=== PATIENT | female | born 1985 | race American Indian/Alaskan Native ===

== ENCOUNTER 2017-03-03 08:24 | Emergency (ER) | payer MEDICAID, OTHER ==
[2017-03-03 09:19] LABS: Basophils % (Auto) 0.7 % (0.0-1.8); Eosinophils % (Auto) 4.1 % (0.0-4.3); Hematocrit 34.3 % (30.3-42.9); Hemoglobin 10.7 gm/dl (10.1-14.3); Mean Corpuscular HGB Conc 31 % (30-34); Mean Corpuscular Volume 76 fl (79-97); Platelet Count 271 K/mm3 (140-440); Red Cell Distribution Width 15.6 % (13.2-15.2); White Blood Count 6.6 K/mm3 (4.5-11.0)
[2017-03-03 09:20] LABS: Mean Corpuscular Hemoglobin 24 pg (28-32)
[2017-03-03 09:29] LABS: INR 0.96 (0.87-1.13)
[2017-03-03 09:30] LABS: Alanine Aminotransferase 10 units/L (7-56); Albumin/Globulin Ratio 1.6 %; Alkaline Phosphatase 54 units/L (35-129); Anion Gap 15 mmol/L; Bilirubin,Total < 0.2 mg/dL (0.1-1.2); Blood Urea Nitrogen 6 mg/dL (7-17); Calcium 8.8 mg/dL (8.4-10.2); Carbon Dioxide 24 mmol/L (22-30); Chloride 106.4 mmol/L (98-107); Glucose 98 mg/dL (65-100); Lipase 113 units/L (13-60); Potassium 4.4 mmol/L (3.6-5.0); Sodium 141 mmol/L (137-145); Total Protein 6.5 g/dL (6.3-8.2)
--- NOTE | 2017-03-03 13:33 | Emergency Department Report ---
ED GI Bleed HPI - General Chief complaint: GI Bleed Stated complaint: BLOOD IN STOOL Source: patient Mode of arrival: Ambulatory Limitations: No Limitations - History of Present Illness Initial comments: 31-year-old female with a past medical history of alcohol-induced pancreatitis presents to the hospital complains of rectal bleeding since this morning. Patient had a loose stool this morning that was brown followed by 2 episodes of gross bloody stools. Mild anal discomfort reported. Patient complained of periumbilical cramping pain that has since resolved. She denies current alcohol intake, nausea, vomiting, melena, fever, aspirin use. Patient states she is lactose intolerant but she did have milk yesterday. No previous gi hx, recent travel, or sick contacts reported. - Related Data Previous Rx's Medication Instructions Recorded Last Taken Type Ciprofloxacin HCl [Ciprofloxacin 500 mg PO Q12H #14 tab 06/19/15 Unknown Rx TAB] Fluconazole [Diflucan TAB] 150 mg PO ONCE #1 tablet 06/19/15 Unknown Rx metroNIDAZOLE [Flagyl TAB] 500 mg PO Q12HR #14 tab 06/19/15 Unknown Rx Allergies Allergy/AdvReac Type Severity Reaction Status Date / Time No Known Allergies Allergy Verified 03/03/17 08:28 ED Review of Systems ROS: Stated complaint: BLOOD IN STOOL Other details as noted in HPI Comment: All other systems reviewed and negative Other: Constitutional: No fevers chills Eyes: No eye pain visual changes ENT: No ear pain or throat pain Neck: Denies pain Respiratory: Denies cough wheezing shortness of breath Cardiovascular: Denies chest pain, palpitations, syncope GI: Denies nausea, vomiting : Denies dysuria Musculoskeletal: Denies back pain Skin: Denies rash, lesions, erythema Neurologic: Denies headache, numbness, weakness Psychiatric: Denies suicidal ideation, hallucinations ED Past Medical Hx - Past Medical History Additional medical history: PANCREATITIS X 1/ HEART MURMUR PRE DIABETIC - Surgical History Past Surgical History?: No - Social History Smoking Status: Never Smoker Substance Use Type: None - Medications Home Medications: Home Medications Medication Instructions Recorded Confirmed Last Taken Type Ciprofloxacin HCl [Ciprofloxacin 500 mg PO Q12H #14 tab 06/19/15 Unknown Rx TAB] Fluconazole [Diflucan TAB] 150 mg PO ONCE #1 tablet 06/19/15 Unknown Rx metroNIDAZOLE [Flagyl TAB] 500 mg PO Q12HR #14 tab 06/19/15 Unknown Rx ED Physical Exam - General Limitations: No Limitations - Other Other exam information: General: No limitations, patient is alert in no acute distress Head exam: Atraumatic, normocephalic Eyes exam: Normal appearance ENT: Moist mucous membrane, normal oropharynx Neck exam: Normal inspection, full range of motion Respiratory exam: Clear to auscultation bilateral, no wheezes, rales, crackles Cardiovascular: Normal rate and rhythm, normal heart sounds Abdomen: Soft, nondistended, and nontender, with normal bowel sounds, no rebound, or guarding Rectal: guaiac negative minimal brown stool Extremity: Full range of motion normal inspection no deformity Back: Normal Inspection, full range of motion, no tenderness Neurologic: Alert, oriented x3, cranial nerves intact, no motor or sensory deficit Psychiatric: normal affect, normal mood Skin: Warm, dry, intact ED Course Vital Signs 03/03/17 03/03/17 03/03/17 08:28 12:32 14:20 Temperature 97.8 F 98.1 F Pulse Rate 64 61 Respiratory 18 18 18 Rate Blood Pressure 126/73 Blood Pressure 123/61 [Left] O2 Sat by Pulse 100 100 Oximetry - Reevaluation(s) Reevaluation #1: 03/03/17 15:20 Patient stable in the ED - Consultations Consultation #1: 03/03/17 15:20 Dr Oconnor [email or web address] at 1:30pm call back at this time. Rec outpatient follow up ED Medical Decision Making - Lab Data Result diagrams: 03/03/17 08:52 03/03/17 08:52 Lab Results 03/03/17 03/03/17 03/03/17 Range/Units 08:52 08:52 08:52 WBC 6.6 (4.5-11.0) K/mm3 RBC 4.50 (3.65-5.03) M/mm3 Hgb 10.7 (10.1-14.3) gm/dl Hct 34.3 (30.3-42.9) % MCV 76 L (79-97) fl MCH 24 L (28-32) pg MCHC 31 (30-34) % RDW 15.6 H (13.2-15.2) % Plt Count 271 (140-440) K/mm3 Lymph % (Auto) 33.0 (13.4-35.0) % Darke % (Auto) 5.8 (0.0-7.3) % Eos % (Auto) 4.1 (0.0-4.3) % Baso % (Auto) 0.7 (0.0-1.8) % Lymph # 2.2 (1.2-5.4) K/mm3 Darke # 0.4 (0.0-0.8) K/mm3 Eos # 0.3 (0.0-0.4) K/mm3 Baso # 0.0 (0.0-0.1) K/mm3 Seg Neutrophils % 56.4 (40.0-70.0) % Seg Neutrophils # 3.7 (1.8-7.7) K/mm3 PT 12.7 (12.2-14.9) Sec. INR 0.96 (0.87-1.13) APTT 31.0 (24.2-36.6) Sec. Sodium 141 (137-145) mmol/L Potassium 4.4 (3.6-5.0) mmol/L Chloride 106.4 (98-107) mmol/L Carbon Dioxide 24 (22-30) mmol/L Anion Gap 15 mmol/L BUN 6 L (7-17) mg/dL Creatinine 0.6 L (0.7-1.2) mg/dL Estimated GFR > 60 ml/min BUN/Creatinine Ratio 10.00 % Glucose 98 (65-100) mg/dL Calcium 8.8 (8.4-10.2) mg/dL Total Bilirubin < 0.2 (0.1-1.2) mg/dL AST 11 (5-40) units/L ALT 10 (7-56) units/L Alkaline Phosphatase 54 (35-129) units/L Total Protein 6.5 (6.3-8.2) g/dL Albumin 4.0 (3.9-5) g/dL Albumin/Globulin Ratio 1.6 % Lipase 113 H (13-60) units/L Blood Type Antibody Screen 03/03/17 Range/Units 08:52 WBC (4.5-11.0) K/mm3 RBC (3.65-5.03) M/mm3 Hgb (10.1-14.3) gm/dl Hct (30.3-42.9) % MCV (79-97) fl MCH (28-32) pg MCHC (30-34) % RDW (13.2-15.2) % Plt Count (140-440) K/mm3 Lymph % (Auto) (13.4-35.0) % Darke % (Auto) (0.0-7.3) % Eos % (Auto) (0.0-4.3) % Baso % (Auto) (0.0-1.8) % Lymph # (1.2-5.4) K/mm3 Darke # (0.0-0.8) K/mm3 Eos # (0.0-0.4) K/mm3 Baso # (0.0-0.1) K/mm3 Seg Neutrophils % (40.0-70.0) % Seg Neutrophils # (1.8-7.7) K/mm3 PT (12.2-14.9) Sec. INR (0.87-1.13) APTT (24.2-36.6) Sec. Sodium (137-145) mmol/L Potassium (3.6-5.0) mmol/L Chloride (98-107) mmol/L Carbon Dioxide (22-30) mmol/L Anion Gap mmol/L BUN (7-17) mg/dL Creatinine (0.7-1.2) mg/dL Estimated GFR ml/min BUN/Creatinine Ratio % Glucose (65-100) mg/dL Calcium (8.4-10.2) mg/dL Total Bilirubin (0.1-1.2) mg/dL AST (5-40) units/L ALT (7-56) units/L Alkaline Phosphatase (35-129) units/L Total Protein (6.3-8.2) g/dL Albumin (3.9-5) g/dL Albumin/Globulin Ratio % Lipase (13-60) units/L Blood Type B POSITIVE Antibody Screen Negative - EKG Data -: EKG Interpreted by Me (sinus rhythm with sinus arrhythmia rate 60) - EKG Data When compared to previous EKG there are: no significant change (sinus rhythm with sinus arrhythmia rate 60), previous EKG unavailable - Medical Decision Making No signs of active bleeding in the ED. Guaiac negative. No gross blood on exam. Plan to discharge patient with outpatient follow-up with GI - Differential Diagnosis anal fissure, hemorrhoid, diverticulosis, IBS Critical Care Time: No Critical care attestation.: If time is entered above; I have spent that time in minutes in the direct care of this critically ill patient, excluding procedure time. ED Disposition Clinical Impression: Rectal bleeding, Diarrhea Disposition: DISCHARGED TO HOME OR SELFCARE Is pt being admited?: No Does the pt Need Aspirin: No Condition: Stable Instructions: Rectal Bleeding (ED), Acute Diarrhea (ED) Additional Instructions: Please follow up with the GI doctor provided as soon as possible for reevaluation of your rectal bleeding symptoms. Please return if your symptoms worsen as indicated by your discharge instructions. Referrals: [facility] [Provider Group] - 3-5 Days (primary care doctor ) YANET OCONNOR MD [Staff Physician] - 3-5 Days (GI doctor ) Forms: Accompanied Note Time of Disposition: 15:26
[2017-03-03 14:21] VITALS: BP 123/61
== END 2017-03-03 15:51 | disposition home or self-care (01) ==
LOC: ED 08:24
DX: R10.33 Periumbilical pain (principal); R19.7 Diarrhea, unspecified
CPT/HCPCS: 36415; 80053; 82271; 83690; 85025; 85610; 85730; 86850; 86900; 86901; 93005; 93010; 99284